=== PATIENT | female | born 1995 | race African-American/Black ===

== ENCOUNTER 2023-05-10 15:43 | Emergency (ER) | payer MEDICAID, MEDICARE ==
[~2023-05-10] VITALS: Ht 175.3 cm; Wt 69.0 kg
[2023-05-10 16:00] VITALS: O2SAT 99
[2023-05-10] MEDS ORDERED: DEXAMETHASONE 2MG TABLET PO ONE (17:45)
[2023-05-10] MEDS ORDERED: IBUPROFEN 600MG TABLET PO ONE (17:45)
[2023-05-10] MEDS ORDERED: AMOX1TAB15 MT (17:55)
[2023-05-10 18:47] VITALS: BP 124/78; PULSE 89; RESP 18; TEMP 100.2
== END 2023-05-10 18:48 | disposition home or self-care (01) ==
LOC: ER 16:10
DX: J03.90 Acute tonsillitis, unspecified (principal)
CPT/HCPCS: 99283; 81025; J8540